=== PATIENT | female | born 1990 | race African-American/Black ===

== ENCOUNTER 2019-08-17 19:31 | Emergency (ER) | payer SELFPAY ==
[2019-08-17] MEDS ORDERED: Morphine 4 MG/ML VIAL ONE (21:52)
[2019-08-17] MEDS ORDERED: Ondansetron PF 4 MG/2 ML Vial ONE (21:53)
[2019-08-17 22:12] LABS: #Basophils 0.1 thou/uL (0.0-0.2); #Eosinphils 0.1 thou/uL (0.0-0.7); #Lymphocytes 2.4 thou/uL (1.20-3.40); #Monocytes 1.2 thou/uL (0.11-0.59); #Neutrophils 13.6 thou/uL (1.40-6.50); %Basophils 0.5 % (0.0-1.0); %Eosinophils 0.6 % (0.0-10.0); %Lymphocytes 13.9 % (21.0-51.0); Hemoglobin 14.9 g/dL (12.0-16.0); Mean Corpuscular HGB CONC 34.8 g/dL (32.0-36.0); Mean Corpuscular Hemoglobin 33.6 pg (27.0-31.0); Mean Corpuscular Volume 96.5 fL (78.0-98.0); Mean Platelet Volume 8.1 fL (7.4-10.4); Platelet Count 258 thou/uL (130-400); RBC Distribution Width 10.9 % (11.5-14.5); Red Blood Cell (RBC) Count 4.42 mill/uL (4.20-5.40); White Blood Cell (WBC) Count 17.4 thou/uL (4.8-10.8)
--- NOTE | 2019-08-17 22:35 | CT ---
EXAM: CT Pelvis W Con PROVIDED CLINICAL HISTORY: Patient reports abscess to left buttock. Increasing pain. COMPARISON: None FINDINGS: There is a small lobulated fluid collection measuring 2.7 cm x 2.9 cm x 1.7 cm seen in the most media l aspect of the left gluteal adipose soft tissues adjacent to the gluteal cleft with adjacent mild inflammatory changes noted. This likely represents a small abscess collection. Urinary bladder is decompressed but grossly normal in appearance. The uterus and adnexal structures h ave a normal appearance. There is a small fat-containing umbilical hernia. No free fluid is seen within the pelvis. There is no evidence of lymphadenopathy. IMPRESSION: Small lobulated fluid collection likely representing a small abscess with greatest dimension of 2.9 c m in the left gluteal adipose soft tissues adjacent to the gluteal cleft.
[2019-08-17 22:36] LABS: ALT (SGPT) 54 U/L (8-55); AST (SGOT) 24 U/L (5-34); Albumin 4.1 g/dL (3.5-5.0); Alkaline Phosphatase 115 U/L (40-110); Anion Gap 14 mmol/L (10-20); BUN (Urea Nitrogen) 6 mg/dL (7.0-18.7); Bilirubin, Total 0.5 mg/dL (0.2-1.2); Calc. Creatinine Clearance 0 mL/min (70-130); Calcium 9.9 mg/dL (7.8-10.44); Carbon Dioxide 24 mmol/L (22-29); Chloride 106 mmol/L (98-107); Estimated GFR-MDRD Greater than 90; Globulin 3.5 g/dL (2.4-3.5); Glucose 120 mg/dL (70-105); Potassium 3.6 mmol/L (3.5-5.1); Protein, Total 7.6 g/dL (6.0-8.3); Sodium 140 mmol/L (136-145)
[2019-08-17] MEDS ORDERED: Sulfameth/Trimethoprim DS 800-160mg TAB ONE (22:41)
[2019-08-17] MEDS ORDERED: Acetaminophen 500 MG TAB ONE (22:41)
[2019-08-17] MEDS ORDERED: Ketorolac Tromethamine 30 MG/ML VIAL ONE (22:41)
[2019-08-17] MEDS ORDERED: cefTRIAXone\\ROCEPHIN 2 GM VIAL ONE (22:41)
[2019-08-17] MEDS ORDERED: Lidocaine 1% w/Epinephrine 1:100K 20 ML VIAL ONE (23:06)
[2019-08-17] MEDS ORDERED: Adacel (T-DAP) 0.5 ML SYRINGE ONE (23:06)
== END 2019-08-18 00:55 | disposition home or self-care (01) ==
LOC: ERS 19:31
DX: L02.31 Cutaneous abscess of buttock (principal); F17.210 Nicotine dependence, cigarettes, uncomplicated
CPT/HCPCS: 10080; 72193; 80053; 85025; 90471; 90715; 96361; 96365; 96375; J0696; J1885; J2270; J2405